=== PATIENT | male | born 1960 | race Caucasian/White ===

== ENCOUNTER 2019-03-04 08:29 | Day surgery (SDC) | payer BC, SELFPAY ==
--- NOTE | 2019-03-04 08:49 | PDOC.DSDIS_ITS ---
Discharge Plan Disposition Patient Disposition: HOME Condition: Good Discharge Details Reason For Visit: Colonoscopy Attending Provider: Shelbi Nickerson Primary Care Provider: Fang Carver Home Meds and New Rx's Prescriptions: Continued levomefolate calcium [L-Methylfolate] 7.5 mg tablet 7.5 mg PO DAILY RF: 0 fluoxetine 40 mg capsule 40 mg PO DAILY RF: 0 famciclovir 250 mg tablet 250 mg PO BID RF: 0 omega-3 fatty acids [Fish Oil Concentrate] 1,000 mg capsule 1,000 mg PO DAILY RF: 0 hydroxyzine pamoate 50 MG capsule 50 mg PO PRN RF: 0 triamcinolone acetonide 15 GM ointment 15 gm Topical PRN RF: 0 lamivudine-zidovudine [Combivir] 1 EACH tablet 1 tab-cap PO BID RF: 0 levothyroxine 100 MCG tablet 100 mcg PO DAILY RF: 0 indomethacin 25 MG capsule 25 mg PO PRN RF: 0 efavirenz [Sustiva] 600 MG tablet 1 tab PO DAILY RF: 0 Discontinued polyethylene glycol 3350 17 gram/dose powder 238 g PO ONCE Qty: 238 RF: 0 bisacodyl [Dulcolax (bisacodyl)] 5 mg tablet,delayed release (DR/EC) 5 mg PO ONCE Qty: 4 RF: 0 Discharge Instructions Additional Instructions: Findings: One polyp was removed. My office will contact you with biopsy result s. Diverticulosis was present. Take in a diet high in fiber - at least 30 grams/day. Follow up: Plan for a colonoscopy in 5 years. Please call if you develop: fevers >101.5 Nausea or Vomiting Abdominal pain that is not transient DAY SURGERY UNIT POST COLONOSCOPY INSTRUCTIONS 1. Because there will be medication in your system for the next 24 hours, you may feel a little sleepy. Your coordination will be affected. Therefore: a. Do not drive or operate dangerous equipment for 24 hours. b. Do not drink alcohol beverages for 24 hours (not even beer). c. Plan to go home and rest for the day. 2. Generally there are no restrictions on your activity after a day or so has gone by, but you may feel a bit fatigued for a few days. 3 After you arrive home you may have a light meal and return to a normal diet as you can tolerate it without feeling sick to your stomach. 4. After surgery, you may feel pain or discomfort. This should be only transient, but if it persists please contact your doctor. 5. If there are any questions regarding the findings of your procedure, please feel free to contact your doctor. 6. If you are unable to contact your doctor with a problem, contact the hospital at [phone]. 7. Continue all your regular medications unless directed otherwise. I understand the above instructions and have no questions. Signature of Patient or Responsible Adult Escort Date/Time Name of Responsible Adult Escort Signature of Nurse Date/Time Stand Alone Forms: Nabil Ash (SARABJITU) Activity:: Activity as Tolerated Diet:: As Tolerated Discharge Orders Discharge Orders: Discharge Order (Routine); Ordered 03/04/19 Ordered By: Shelbi Nickerson DS: Diagnosis Discharge Diagnosis (1) Diverticulosis: Status: Acute (2) Colon polyp: Status: Acute
[2019-03-04 08:51] VITALS: BP 132/79; PULSE 82; RESP 16; TEMP 36.7; O2SAT 94
[2019-03-04] MEDS: Lactated Ringers 1,000 ML 80 ML IV (09:07)
--- NOTE | 2019-03-04 10:20 | BOWEL_PTH ---
PATIENT: JD ARIAS LOC: [facility] U#:[id number] AGE/SX: 58/M ROOM: RE03/04/[address]: Shelbi Nickerson MD : [id number] BED: DIS: 03/04/2019 SPEC #: [id number] RECD: 03/04/19 11:06 STATUS: GLENNA REQ #: [id number] SARAH: 03/04/19 10:[address]: Shelbi Nickerson DEPT: Surgical Specimen RECD BY: Nell Dwyer ENTERED: 03/04/19 11:12 SP TYPE: Bowel OTHR DR: Fang Carver Tissues: 1 - BIOPSY BOWEL Procedures: GROSS AND MICRO LEVEL 4 Comments: [id number]
[2019-03-04 11:06] VITALS: BP 125/79; PULSE 66; RESP 16; TEMP 36.1; O2SAT 96
--- NOTE | 2019-03-04 11:36 | COLE_ITS ---
DATE OF PROCEDURE: March 04, 2019 PREOPERATIVE DIAGNOSIS: History of colon polyps. POSTOPERATIVE DIAGNOSIS: 1. Descending colon polyp. 2. Diverticulosis. PROCEDURE: Colonoscopy with polypectomy. SURGEON: Shelbi Nickerson M.D. ANESTHESIA: General. INDICATIONS: This is a 58-year-old man whose prior colonoscopy in 2013 showed three polyps. He pres ents for a routine follow-up. PROCEDURE: He was placed in the left Dumont position. Propofol was titrated to sedation. Digital rec joan examination revealed no abnormalities. The scope was advanced to the cecum without difficulty. The ileocecal valve and appendiceal orifice were clearly identified. His prep was excellent. The sc ope was slowly withdrawn with no abnormalities seen within the ascending or transverse colon. In the descending colon there was a < 1 cm polyp that was removed with snare polypectomy. There was a smal l amount of bleeding at the site that remained submucosal. I placed three hemostatic clips with exce llent result. The polyp could not be suctioned through the scope and was dragged out and retrieved f or pathology. I then reinserted the scope to the polypectomy site and confirmed that there was good hemostasis with no expansion of the submucosal hematoma. The scope was slowly withdrawn with no othe r abnormalities noted with the exception of mild to moderate diverticular change in the sigmoid regio n. The rectum was normal, including on retroflex view. He tolerated the procedure well and was stab le to recovery. It is anticipated he will need another colonoscopy again in five years, pending biop sy results. cc: Fang Carver M.D.
== END 2019-03-04 11:27 | disposition home or self-care (01) ==
PROVIDERS: PCP Family Medicine; Visit Provider Surgery
PROC: 0DJD8ZZ Inspection of Lower Intestinal Tract, Via Natural or Artificial Opening Endoscopic (ICD-10-PCS; CPT 45378; principal; 2019-03-04 09:45)
DX: Z12.11 Encounter for screening for malignant neoplasm of colon (principal); Z86.010 Personal history of colon polyps; D12.4 Benign neoplasm of descending colon; K57.30 Diverticulosis of large intestine without perforation or abscess without bleeding; B20 Human immunodeficiency virus [HIV] disease
CPT/HCPCS: 45385; 88305